=== PATIENT | male | born 1940 | race Caucasian/White ===

== ENCOUNTER 2020-09-06 13:41 | Outpatient (CLI) | payer MEDICARE, SELFPAY ==
[2020-09-06 14:03] LABS: Basophils Percent Auto 0.4 % (0.2-1.2); Eosinophils Absolute Auto 0.1 K/mm3 (0-0.3); Eosinophils Percent Auto 1.5 % (0-4.4); Hematocrit 37.4 % (42.0-52.0); Hemoglobin 10.7 g/dL (14.0-18.0); Immature Granulocyte Absolute 0.04 K/mm3 (0.00-0.031); Immature Granulocyte Percent A 0.4 % (0-0.5); Lymphocytes Absolute Auto 1.58 K/mm3 (0.9-3.2); Lymphocytes Percent Auto 17.1 % (18.3-44.2); Mean Corpuscular HGB Conc 28.6 g/dl (32-36); Mean Corpuscular Hemoglobin 24.4 pg (26-34); Mean Corpuscular Volume 85.4 fl (80-100); Mean Platelet Volume 8.3 fl (7.4-10.4); Monocytes Absolute Auto 0.7 K/mm3 (0.1-0.6); Monocytes Percent Auto 7.8 % (2.6-8.5); Neutrophils Absolute Auto 6.7 K/mm3 (1.3-6.7); Neutrophils Percent Auto 72.8 % (45.5-73.1); Platelet Count Result 382 k/mm3 (150-375); Red Blood Count 4.38 M/mm3 (4.6-6.20); Red Cell Distribution Width 16.3 % (11.5-14.5); White Blood Count 9.3 K/mm3 (4.5-10.0)
[2020-09-06 14:52] LABS: Alanine Aminotransferase 9 U/L (4-50); Albumin Level 3.4 g/dL (3.5-5.1); Alkaline Phosphatase 66 U/L (38-126); Anion Gap 3 mmol/L (8-16); Aspartate Amino Transferase 26 U/L (17-59); Bilirubin,Total 0.3 mg/dL (0.2-1.3); Blood Urea Nitrogen 8 mg/dL (9-20); Calcium 9.3 mg/dL (8.4-10.2); Carbon Dioxide 35 mmol/L (22-30); Chloride 100 mmol/L (98-107); Estimated Glomerular Filt Rate > 60; Glucose 98 mg/dL (75-110); Potassium 4.2 mmol/L (3.4-5.0); Sodium 138 mmol/L (137-145)
== END 2020-09-06 13:42 | disposition home or self-care (01) ==
PROVIDERS: Visit Provider Internal Medicine Hematology & Oncology
DX: C34.90 Malignant neoplasm of unspecified part of unspecified bronchus or lung (principal)
CPT/HCPCS: 36415; 80053; 85025

== ENCOUNTER 2020-09-10 07:35 | Outpatient (CLI) | payer MEDICARE, SELFPAY ==
--- NOTE | ~2020-09-10 | CT_ITS ---
EXAMINATION: CT brain w con EXAM DATE: 09/10/2020 08:22 INDICATION: Small cell lung cancer. TECHNIQUE: Spiral CT of the head was performed following intravenous injection of 100 mL intravenous Omnipaque 350 solution. Axial, coronal and sagittal images were reviewed. The dose-length product ( DLP) for this examination was 605.33 mGy-cm. The exposure was tailored according to patient size, an d iterative reconstruction (ASIR) was used as additional dose reduction technique. There is no prior study for comparison. FINDINGS: There is a 3 mm focus of enhancement in the right frontal subcortical white matter, axial 3 5. Thin rim of hypodensity suspected surrounding this. Probably metastatic lesion with vasogenic tessa a. This is the only focus of abnormal enhancement identified. There is mild microangiopathy and cereb ral atrophy. No acute intracranial hemorrhage, extra-axial collections or obstructive hydrocephalus. There is mild microangiopathy and cerebral atrophy. Left frontal craniotomy, and parasellar aneurysm clips. Mastoi d air cells, imaged portions of sinuses are unremarkable. IMPRESSION: Solitary 3 mm right frontal white matter enhancing focus most likely metastatic lesion. Reviewed, dictated and finalized at location B. [employer] PILOT IMPRESSION: Solitary 3 mm right frontal white matter enhancing focus most like ly metastatic lesion.
== END 2020-09-10 07:36 | disposition home or self-care (01) ==
PROVIDERS: PCP Family Medicine Sports Medicine; Visit Provider Internal Medicine Hematology & Oncology
DX: C34.12 Malignant neoplasm of upper lobe, left bronchus or lung (principal); R93.0 Abnormal findings on diagnostic imaging of skull and head, not elsewhere classified
CPT/HCPCS: 70460; Q9967

== ENCOUNTER 2020-09-13 07:32 | Outpatient (CLI) | payer MEDICARE, SELFPAY ==
--- NOTE | ~2020-09-13 | PE_ITS ---
EXAMINATION: PET skull to mid thigh DATE: 09/13/2020 09:41 INDICATION: Malignant neoplasm of the upper lobe of the left lung TECHNIQUE: Blood glucose level was 105 mg/dL. 10.3 mCi of 18-fluorodeoxyglucose (18-FDG) was administ ered i.v. Low dose computed tomography (CT) images were acquired from the base of the brain to the pr oximal thighs for attenuation correction and anatomic localization. Positron emission tomography (PET ) images were acquired in the same distribution beginning 67 minutes after injection. The dose-length product (DLP) was 946.31 mGy-cm. COMPARISON: 09/10/2020 FINDINGS: Head/neck: No abnormal FDG uptake is identified. The enhancing lesion in the right frontal subcortica l white matter described on the comparison CT does not definitely show FDG uptake however, this could be due to the small size of the lesion. Changes of left frontal craniotomy and parasellar aneurysm c lips are noted. Chest: There is a 12.1 x 9.6 cm left perihilar mass extending into the upper lobe and lower lobe whic h demonstrates abnormal FDG uptake with an SUV max of 44.7. The mass infiltrates into the mediastinum and exerts mass effect on the left atrium of the heart. There is a small left pleural effusion with an indwelling drainage catheter. The lingular and left lower lobe bronchi are obstructed by the mass. There is a moderate-sized pericardial effusion. A 2.4 x 1.7 cm lymph node adjacent to the cardiac ap ex demonstrates abnormal FDG uptake with an SUV max of 34. There is mild emphysema. The heart size is normal. Abdomen/pelvis/proximal thighs: Physiologic FDG activity is present in the bowel and urinary tract. T he liver, spleen, pancreas, gallbladder, and adrenal glands are normal. Cysts of the kidneys measure up to 8.0 cm on the left. There is calcified atherosclerosis of the aorta and many of the other arter ies. There are no pathologically enlarged abdominal lymph nodes. There is colonic diverticulosis. The re is a 3.1 x 2.1 cm fluid collection anterior to the proximal sigmoid colon with abnormal FDG uptake and foci of fluid and gas which extend anteromedially and superiorly, also with abnormal FDG activit y. There is a questionable fistula to a loop of small bowel in the midabdomen There is a small amount of ascites in the pelvis. There are no dilated loops of bowel. Musculoskeletal: No abnormal FDG uptake is identified. There is severe cervical spondylosis and moder ate thoracic and lumbar spondylosis. There is moderate osteoarthritis of the shoulders, severe left h ip osteoarthritis, and mild right hip osteoarthritis. Sclerotic lesions in the pelvis and proximal le ft femur without FDG uptake likely reflect bone islands. IMPRESSION: 1. Left perihilar mass extending into the upper and lower lobe, consistent with known malignancy. 2. Lymph node adjacent to the cardiac apex with abnormal FDG uptake, consistent with metastatic disea se. 3. Findings consistent with sigmoid diverticulitis with microperforation and possible fistula to a sm all bowel loop of the mid abdomen. Recommend correlation for left lower quadrant pain/tenderness, fev er, and other signs of acute process. Could consider trial of antibiotics with possible surgical eval uation. These findings and recommendations were discussed with Dr. Vishnu Montelongo MD at 1421 hours on 021. Reviewed, dictated and finalized at location A. [employer]ID DIRECTOR IMPRESSION: 1. Left perihilar mass extending into the upper and lower lobe, consistent with known malignancy. 2. Lymph node adjacent to the cardiac apex with abnormal FDG uptake, consistent with metastatic disease. 3. Findings consistent with sigmoid diverticulitis with microperforation and po ssible fistula to a small bowel loop of the mid abdomen. Recommend corre
[2020-09-13 08:04] LABS: Glucose Point of Care 105 (65-105)
== END 2020-09-13 07:33 | disposition home or self-care (01) ==
PROVIDERS: PCP Family Medicine Sports Medicine; Visit Provider Internal Medicine Hematology & Oncology
DX: C34.12 Malignant neoplasm of upper lobe, left bronchus or lung (principal)
CPT/HCPCS: 78815; 82948; A9552

== ENCOUNTER → 2020-09-21 00:29 | Outpatient (CLI) | payer MEDICARE, SELFPAY ==
[2020-09-21 19:13] LABS: SARS-CoV-2 RNA PCR Negative
== END ==
PROVIDERS: PCP Family Medicine Sports Medicine; Visit Provider Surgery
DX: Z01.812 Encounter for preprocedural laboratory examination (principal); Z20.822 Contact with and (suspected) exposure to COVID-19
CPT/HCPCS: C9803; U0003; U0005

== ENCOUNTER 2020-10-17 08:33 | Outpatient (RCR) | payer MEDICARE, SELFPAY ==
[2020-10-17 09:00] VITALS: BP 121/83; PULSE 122; RESP 16; TEMP 36.8; O2SAT 96; BMI 28.5
== END 2021-01-15 23:59 | disposition home or self-care (01) ==
LOC: ANHVASCINF 08:33
PROVIDERS: PCP Family Medicine Sports Medicine; Visit Provider Internal Medicine Hematology & Oncology
DX: Z45.2 Encounter for adjustment and management of vascular access device (principal); C34.90 Malignant neoplasm of unspecified part of unspecified bronchus or lung
CPT/HCPCS: 36569; C1751

== ENCOUNTER 2020-11-11 09:04 | Outpatient (CLI) | payer MEDICARE, SELFPAY | END 2020-11-11 09:05 | disposition home or self-care (01) | LOC: ANHLAB 09:07 | PROVIDERS: PCP Family Medicine Sports Medicine | DX: Z51.81 Encounter for therapeutic drug level monitoring (principal); Z79.899 Other long term (current) drug therapy; B45.9 Cryptococcosis, unspecified | CPT/HCPCS: 36415; 82248 ==

== ENCOUNTER → 2020-12-17 01:14 | Outpatient (CLI) | payer MEDICARE, SELFPAY ==
[2020-12-17 17:24] LABS: SARS-CoV-2 RNA PCR Negative
== END ==
PROVIDERS: PCP Family Medicine Sports Medicine; Visit Provider Surgery
DX: Z01.812 Encounter for preprocedural laboratory examination (principal); Z20.822 Contact with and (suspected) exposure to COVID-19
CPT/HCPCS: C9803; U0003; U0005

== ENCOUNTER 2020-12-20 00:50 | Day surgery (SDC) | payer MEDICARE, SELFPAY ==
[2020-12-13 09:25] VITALS: BMI 26.7
--- NOTE | ~2020-12-20 | XR_ITS ---
XR chest port-a-cath/central, XR fl guide central line place 12/20/2020 13:04 (accession [id number]), 12/20/2020 12:40 (accession [id number]) Indication: Right portacatheter placement Procedure: Single fluoroscopic view of the right upper chest. 119 seconds of fluoroscopy. Follow-up A P portable chest. Comparison: 02/17/2006 Findings: Portacatheter tip in the SVC. Right lung clear. Complete opacification of the left hemithor ax, likely from previous left pneumonectomy. No acute osseous abnormality. PICC line tip likely in th e SVC, not well visualized. Impression: 1: Portacatheter tip in the SVC. 2: Opacification left hemithorax likely from previous pneumonectomy. Reviewed, dictated and finalized at location A. Impression: 1: Portacatheter tip in the SVC. 2: Opacification left hemithorax likely from previous pneumonectomy. Impression: 1: Portacatheter tip in the SVC. 2: Opacification left hemithorax likely from previous pneumonectomy.
[2020-12-20 10:42] VITALS: BP 148/86; PULSE 68; RESP 14; TEMP 36.4; O2SAT 98
[2020-12-20] MEDS: LACTATED RINGERS 1,000 ML 30 ML IV CONT (11:04)
[2020-12-20] MEDS: KETOROLAC 15 MG/ML VIAL (*BKC) IV PUSH (11:04)
[2020-12-20 11:08] LABS: Prothrombin Time 13.6 Seconds (11.1-14.7)
[2020-12-20 11:09] LABS: Partial Thromboplastin Time 28.4 SECONDS (22.3-36.8)
--- NOTE | 2020-12-20 11:46 | WPDHPUPDATE1 ---
History and Physical Update Update Date/Time: 12/20/20 11:46 History and Physical has been reviewed, including an updated exam of the patient. There are NO changes in the patient's condition. Risks, benefits, and alternatives have been discussed and questions answered. Patient agrees to proceed with procedure.
--- NOTE | 2020-12-20 11:46 | PM.IMHP ---
H&P: HPI History of Present Illness Date/Time: 12/20/20 11:46 Chief Complaint: lung cancer Narrative: 80 yo man presents for port placement for lung cancer. He has a PICC line due to a fungal infection of the lung, but now treatment has completed and he was given the OK to get a port. Review of Systems Review of Systems: All systems reviewed & are unremarkable except as noted in HPI and below Constitutional: Constitutional: Denies chills, Denies fever(s), Denies headache(s) and Denies weight loss Eyes: Eyes: Denies change in vision ENT: Denies dizziness, Denies headache(s), Denies neck mass and Denies throat swelling Cardiovascular: Cardiovascular: Denies chest pain, Denies lightheadedness and Denies dyspnea Respiratory: Respiratory: Denies cough, Denies dyspnea and Denies wheezing Gastrointestinal: Gastrointestinal: Denies abdominal pain, Denies change in bowel habits, Denies nausea and Denies vomiting Genitourinary: Genitourinary: Denies hematuria and Denies dysuria Musculoskeletal: Musculoskeletal: Reports as per HPI Integumentary/Breasts: Skin/Breast: Reports as per HPI Neurologic: Denies dizziness and Denies headache(s) Allergic/Immunologic: Allergic/Immunologic: Denies throat swelling and Denies wheezing [facility] Past Medical History Medical History (Updated 11/25/20 @ 10:15 by Hannah Mcgraw MD) Diverticulitis HTN (hypertension) Hyperlipidemia Family History Family History (Updated 09/18/20 @ 11:44 by Hannah Mcgraw MD) Father Suicide Mother Suicide Social History Social History (Updated 09/18/20 @ 11:44 by Hannah Mcgraw MD) Smoking packs per day: 2 Smoking cigarettes per day: 40.0 Years smoked: 20 Smoking pack-years: 40.00 Smoking status: Former smoker Tobacco type: cigarettes Smoking end date: 07/05/03 Alcohol intake: never Alcohol use details: HEAVY DRINKER UNTIL 2004 Substance use: never Substance use type: does not use Living arrangements: alone Gender identity (if verbalized by the patient): Male Spiritual care concerns: No Meds Home Medications and Allergies Home Medications Medication Instructions Recorded Confirmed Type folic acid 1 mg PO DAILY 09/20/20 12/20/20 History docusate calcium [Stool Softener 240 mg PO DAILY PRN 10/15/20 12/20/20 History (docusate [place])] fluconazole 400 mg PO HS 10/15/20 12/20/20 History polyethylene glycol 3350 [Miralax] 17 g PO DAILY 10/15/20 12/20/20 History hydrocodone-acetaminophen 1 tablet PO Q4H PRN 11/12/20 12/20/20 History prochlorperazine maleate 10 mg PO BID PRN 12/13/20 12/20/20 History Allergies Allergy/AdvReac Type Severity Reaction Status Date / Time No Known Allergies Allergy Mild Verified 12/20/20 10:56 Vital Signs Vital Signs - 24 hr 12/20/20 10:42 Temperature 36.4 C Pulse Rate 68 Respiratory Rate 14 Blood Pressure 148/86 H Pulse Oximetry 98 Exam Const: General: no acute distress and alert Orientation/consciousness: patient oriented x3 HENMT: Head: normocephalic and atraumatic Ears: hearing grossly normal bilaterally General nose exam: Normal nares present Mouth: Yes Normal oral and palatal mucosa present Eyes: Periorbital: periorbital findings normal Sclera: sclerae normal EOM: EOMs intact bilaterally Neck: Neck: normal visual inspection, no lymphadenopathy and trachea midline Chest: Chest palpation & inspection: normal inspection of the chest Resp: Effort & Inspection: normal respiratory effort Auscultation: clear to auscultation bilaterally Cardio: Jugular venous distension: no JVD Rate: regular rate Rhythm: regular rhythm Heart sounds: S1 normal heart sound present and S2 normal heart sound present Peripheral pulses: Peripheral pulses 2+ throughout GI: Inspection: normal to inspection GI Palp: Yes Soft to palpation, No Tenderness to palpation present (GI), No Guarding due to palpation present (GI) and No Rebound tenderness present Percu
--- NOTE | 2020-12-20 11:47 | WPDANESEPPF ---
Anes - Initial Pre Proc Eval Procedure: Operation Date: 12/20/20 12:00 Proposed Procedures p Insertion Marty Cath - Haim Werner DO Date/Time: 12/20/20 11:47 Surgeon: Haim Werner DO Pre Op Diagnosis: malignant neoplasm of upper left lobe of lung Patient Data Age: 80 Gender: M Height: 6 ft 1 in Weight: 87.6 kg Last Vital Signs Temp 97.6 F 12/20/20 10:42 Pulse 68 12/20/20 10:42 Resp 14 12/20/20 10:42 BP 148/86 H 12/20/20 10:42 Pulse Ox 98 12/20/20 10:42 Allergies Allergy/AdvReac Type Severity Reaction Status Date / Time No Known Allergies Allergy Mild Verified 12/20/20 10:56 Home Medications Medication Instructions Recorded Confirmed Type folic acid 1 mg PO DAILY 09/20/20 12/20/20 History docusate calcium [Stool Softener 240 mg PO DAILY PRN 10/15/20 12/20/20 History (docusate [place])] fluconazole 400 mg PO HS 10/15/20 12/20/20 History polyethylene glycol 3350 [Miralax] 17 g PO DAILY 10/15/20 12/20/20 History hydrocodone-acetaminophen 1 tablet PO Q4H PRN 11/12/20 12/20/20 History prochlorperazine maleate 10 mg PO BID PRN 12/13/20 12/20/20 History Laboratory Tests 12/20/20 10:39 PT 13.6 Seconds Seconds (11.1-14.7) INR 1.0 APTT 28.4 SECONDS SECONDS (22.3-36.8) Patient hx anesthesia problems: none Family hx anesthesia problems: none PMFSH Past Medical History Medical History (Updated 11/25/20 @ 10:15 by Hannah Mcgraw MD) Diverticulitis HTN (hypertension) Hyperlipidemia Family History Family History (Updated 09/18/20 @ 11:44 by Hannah Mcgraw MD) Father Suicide Mother Suicide Social History Social History (Updated 09/18/20 @ 11:44 by Hannah Mcgraw MD) Smoking packs per day: 2 Smoking cigarettes per day: 40.0 Years smoked: 20 Smoking pack-years: 40.00 Smoking status: Former smoker Tobacco type: cigarettes Smoking end date: 07/05/03 Alcohol intake: never Alcohol use details: HEAVY DRINKER UNTIL 2004 Substance use: never Substance use type: does not use Living arrangements: alone Gender identity (if verbalized by the patient): Male Spiritual care concerns: No Anes - Eval Final PreProcedure Day of Procedure 12/20/20 11:47 Patient weight: overweight Heart: regular rate and rhythm Lungs: clear to auscultation Airway: Mallampati scale class II Neurological: alert and oriented Last oral intake: >/= 8 hours ASA classification: III Emergent: no Anesthetic plan: proceed Anesthesia type and monitoring: general GIVS and standard monitoring Informed Consent: The patient's anesthetic plan and its attendant risks and benefits were discussed with the patient/family/POA. Questions were solicited and answers provided to the satisfaction of the patient/family/POA.
[2020-12-20] MEDS: ceFAZolin 2 GM/D5W 50 ML 2 GM/50 ML BAG IVPB (11:55)
[2020-12-20] MEDS: HEPARIN SODIUM 5,000 UNITS/ML VIAL 5000 UNITS IRRIGATION (12:29)
[2020-12-20] MEDS: HEPARIN SODIUM, PORCINE 10,000 UNITS/10 ML VIAL 10000 UNITS IV PUSH (12:30)
[2020-12-20] MEDS: LIDO 1%/EPINEPHRINE 1:100,000 20 ML VIAL 50 ML INFILTRATE (12:33)
--- NOTE | 2020-12-20 12:40 | W.PM.PROC2 ---
Procedure Note - Detailed Date of Procedure 12/20/20 Pre-op Diagnosis malignant neoplasm of upper left lobe of lung Post-op Diagnosis same Procedure Performed Right Internal jugular Port-A-Cath placement using ultrasound and fluoroscopic guidance Surgeon Haim Werner, DO Anesthesia MAC and local (1% lidocaine with epinephrine) Indications This is a 80-year-old man who presents with small cell lung cancer. He has seen Oncology and is currently undergoing chemotherapy. He has a PICC line in place that was originally used for chemotherapy due to a chronic fungal lung infection. The lung infection has been adequately treated and he has been cleared for port placement. Decision was made to proceed with Port-A-Cath placement. Findings SonoSite ultrasound was used to identify the right internal jugular vein. This was visualized as a compressible vessels just lateral to the pulsatile carotid artery. The right IJ was accessed with an 18 gauge introducer needle under ultrasound guidance. Dark nonpulsatile blood was aspirated. Fluoroscopy was then used to guide advancement of the guidewire followed by the dilator sheath. He did have a somewhat tortuous superior vena cava, likely due to his mediastinal involvement of his cancer. The guidewire was visualized advancing all the way down to the right atrium. Fluoroscopy was then used to guide advancement of the port catheter tubing. Final fluoroscopic images demonstrated the port in proper position with no kinks along its path. Description of Procedure Procedure as well as risks, benefits, and alternatives were discussed with patient. Written consent was obtained and placed in chart prior to procedure. Patient was brought back to surgical suite. Was placed supine on operating table. Time-out was done confirm patient procedure. IV sedation was then administered by the Anesthesia Department. The chest and neck area was prepped and draped in sterile fashion using chlorhexidine prep. Patient was placed in Trendelenburg position. SonoSite ultrasound was used to identify the right internal jugular vein. It was visualized as a compressible vessel just lateral to the carotid artery. 1% lidocaine with epinephrine was infiltrated directly over the vessel under ultrasound guidance. An 18 gauge introducer needle was then advanced under ultrasound guidance directly into the right internal jugular vein. Dark nonpulsatile blood was aspirated. A 0.035 in guidewire was then advanced through the needle under fluoroscopic guidance. The guidewire was visualized advancing all the way down into the superior vena cava. 1% lidocaine with epinephrine was then infiltrated on the right anterior chest and along the tract up to the guidewire insertion site. A 3 cm incision was made with a 15 blade scalpel, and electrocautery was then used for dissection down through the subcutaneous tissue to the pectoral fascia. A pocket was created just inferior to the incision using blunt dissection. A small cyndi incision was then also made at the insertion site at the neck. The tunneler was then advanced from the chest incision up to the neck incision and the catheter tubing was brought up through this tract. The dilator and sheath were then advanced over the guidewire under fluoroscopic visualization. The dilator and guidewire were then removed leaving the sheath in place. The catheter tubing was then advanced through the sheath under fluoroscopic guidance. The sheath was unsnapped and carefully peeled away. The catheter tubing was released underneath the neck incision. Fluoroscopy was used to confirm proper placement of the catheter tubing and no kinks along its path. The catheter was then cut to proper length and secured to the port. The port was then accessed with a Ch needle and aspirated and flushed with heparinized saline. The port function with ease. The port was then hep-locked with Hep-Lock solution. The port was then placed withi
[2020-12-20 12:52] VITALS: BP 148/86; PULSE 107; RESP 16; O2SAT 95
[2020-12-20 13:22] VITALS: BP 111/66; PULSE 108; RESP 18; O2SAT 96
[2020-12-20 13:52] VITALS: BP 116/69; PULSE 100; RESP 18
[2020-12-20 14:15] VITALS: BP 116/65; PULSE 100; RESP 18
== END 2020-12-20 14:21 | disposition home or self-care (01) ==
PROVIDERS: PCP Family Medicine Sports Medicine; Visit Provider Surgery
PROC: (CPT 36561; principal; 2020-12-20 12:00)
DX: C34.12 Malignant neoplasm of upper lobe, left bronchus or lung (principal); I10 Essential (primary) hypertension; E78.5 Hyperlipidemia, unspecified; Z87.891 Personal history of nicotine dependence
CPT/HCPCS: 36561; 36415; 76937; 77001; 85610; 85730; C1788; C9803; J0690; J1644; J1885; J2704; J3010; J7030; J7120; U0003; U0005

== ENCOUNTER 2021-01-22 08:05 | Outpatient (CLI) | payer MEDICARE, SELFPAY ==
--- NOTE | ~2021-01-22 | CT_ITS ---
EXAMINATION: CT brain wo con DATE: 01/22/2021 09:08 INDICATION: Metastatic brain neoplasm; left lung malignancy TECHNIQUE: Computed tomography (CT) of the head was performed with 100 cc Omnipaque 350 intravenous c ontrast. The mA was adjusted according to patient size. Iterative reconstruction technique was employ ed. Exam dose: 659.78 mGy-cm total exam DLP. COMPARISON: 09/20/2020 CT brain FINDINGS: Left frontal craniotomy with bone flap secured by plates and screws. Surgical aneurysm clip s in the left suprasellar area. No fracture or bone destruction of the cranial vault. There is carotid siphon internal carotid artery calcification. There is nonspecific diminished attenu ation of cerebral white matter, likely due to chronic small vessel ischemic changes. Previously reported 3 mm enhancing mass in the right frontal area is not detected on the current nonc ontrast examination. Sensitivity is limited due to absence of the intravenous contrast material on th e current examination. Otherwise no intracranial mass lesion or hemorrhage or recent cerebrovascular accident is evident. No midline shift or mass effect effect. No subdural or epidural hematoma. No skull fracture or bone destruction. There is partial opacification of the left ethmoid air cells. The paranasal sinuses are otherwise well-developed and aerated as are the mastoid air cells. IMPRESSION: Previously reported 3 mm enhancing mass in the right frontal lobe is not evident on the current limited noncontrast examination. Reviewed, dictated and finalized at Location A. Reviewed, dictated and finalized at location A.
--- NOTE | ~2021-01-22 | CT_ITS ---
EXAMINATION: CT chest abdomen pelvis w con DATE: 01/22/2021 09:08 INDICATION: Small cell lung cancer TECHNIQUE: Computed tomography (CT) of the chest, abdomen, and pelvis was performed with 100 cc Omnip aque 350 intravenous contrast. Automated exposure control and iterative reconstruction technique were employed. Exam dose: 659.78 mGy-cm total exam DLP. COMPARISON: 09/13/2020 PET/CT scan FINDINGS: CHEST CT: Right Port-A-Cath catheter tip in right atrium. There is amputation at the distal left mainstem bronchus and left lung atelectasis due to an interval enlarged huge heterogeneous left lung mass measuring up to approximately 17 cm height, 12 cm with, 1 5 cm anteroposterior dimension. There is no aeration of the lung. There is mild leftward shift of the heart mediastinum. The mass engulfs the left hilum and invades the mediastinum. There is extension to the left. Cardiomegaly and mild pericardial effusion. The mass extends into the subcarinal area and along the esophagus. There are multiple metastatic deposits along the left side of the heart, measuring up to 3.2 cm. Ther e is prevascular lymphadenopathy measuring up to 12 x 20 mm. There are multiple left pleural metastases and there is mild pleural effusion on the left. ABDOMEN/PELVIS CT: Multiple peritoneal metastases are noted, measuring up to 2.1 cm. No hepatic space-occupying mass lesion is evident. The gallbladder is present. No bile duct dilatatio n. No pancreatic mass lesion, calcification or ductal dilatation. Splenic size is normal. Normal morphology of the adrenal glands. There are multiple bilateral renal cysts measuring up to 1.8 cm on the right, greater than 7 cm on th e left. 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 There is atherosclerotic calcification but no aneurysm of the abdominal aorta or iliac arteries. No i ntraperitoneal or retroperitoneal or pelvic mass lesion or adenopathy or ascites. Normal appendix. Diverticulosis of left and right colon; no CT evidence of diverticulitis. No bowel obstruction, bowel wall thickening, pneumatosis or intraperitoneal free air. Prostate enlargement. There is moderate thickening of the urinary bladder wall. Compression fracture deformity of T10. Moderately severe degenerative disease at L3-4 with associated minimal retrolisthesis. There is mild compression fracture deformity of L4 with concavity of the superior vertebral endplate. Severe degenerative disc disease at L5-S1. Bilateral glenohumeral osteoarthritis. Bilateral hip osteoarthritis, particularly severe on the left. Possible avascular necrosis of the lef t femoral head. There are scattered osteosclerotic foci of the axial skeleton, which may be due to bone islands or os teosclerotic metastatic disease from prostate. Consider radionuclide bone scan. IMPRESSION: Huge left lung malignancy and particularly the left mainstem bronchus with left lung inv asion and complete left lung atelectasis, mediastinal invasion, metastatic mediastinal adenopathy, pe ricardial and pleural metastasis, mild pleural effusion and pericardial effusion and peritoneal metas tases Prostate enlargement. Numerous sclerotic foci of the axial skeleton may be bone islands versus prosta te metastases. Consider radionuclide bone scan Multiple bilateral renal cysts Reviewed, dictated and finalized at Location A. Reviewed, dictated and finalized at location A. IMPRESSION: Huge left lung malignancy and particularly the left mainstem bronc hus with left lung invasion and complete left lung atelectasis, mediastinal inv asion, metastatic mediastinal adenopathy, pericardial and pleural metastasis, m ild pleural effusion and pericardial effusion and peritoneal metastases
== END 2021-01-22 08:06 | disposition home or self-care (01) ==
PROVIDERS: PCP Family Medicine Sports Medicine; Referring Provider Internal Medicine Hematology & Oncology; Visit Provider Radiology Radiation Oncology
DX: C34.92 Malignant neoplasm of unspecified part of left bronchus or lung (principal); C79.31 Secondary malignant neoplasm of brain; N28.1 Cyst of kidney, acquired; N40.0 Benign prostatic hyperplasia without lower urinary tract symptoms; M47.817 Spondylosis without myelopathy or radiculopathy, lumbosacral region; M16.0 Bilateral primary osteoarthritis of hip; M19.09 Primary osteoarthritis, other specified site; M48.54XA Collapsed vertebra, not elsewhere classified, thoracic region, initial encounter for fracture; M48.56XA Collapsed vertebra, not elsewhere classified, lumbar region, initial encounter for fracture
CPT/HCPCS: 70450; 71260; 74177; Q9967

== ENCOUNTER 2021-01-24 16:18 | Observation (INO) | payer MEDICARE, SELFPAY ==
[2021-01-24] VITALS (7 sets, daily range): BP systolic 91–116; BP diastolic 60–74; PULSE 103–118; RESP 18–28; TEMP 35.8; O2SAT 97–100
--- NOTE | ~2021-01-24 | XR_ITS ---
EXAMINATION: XR chest 2V EXAM DATE: 01/24/2021 16:40 INDICATION: Shortness of breath, lung cancer. Left-sided upper chest pain. TECHNIQUE: Frontal and lateral projections of the chest obtained and reviewed. Comparison is made to prior examination from 12/20/2020. FINDINGS: There is a right-sided portacatheter with intact line. Completely opacified left hemithora x again noted. Right lung is clear. No pneumothorax. Can't evaluate cardiac silhouette. There is aort ic arteriosclerosis. There are bony degenerative changes. IMPRESSION: Completely opacified left hemithorax unchanged. Correlate with CT chest from 2 days [facility] er. Reviewed, dictated and finalized at location A. IMPRESSION: Completely opacified left hemithorax unchanged. Correlate with CT c hest from 2 days earlier.
--- NOTE | 2021-01-24 16:21 | ECG_ITS ---
Measurements Intervals [place] Rate: 101 P: 67 FL: 146 QRS: 71 QRSD: 87 T: 60 QT: 332 QTc: 432 Interpretive Statements SINUS TACHYCARDIA BORDERLINE ECG Electronically Signed On 01-25-2021 6:59:56 CDT by Erik Callahan D.O.
[2021-01-24 20:23] LABS: Basophils Percent Auto 0.2 % (0.2-1.2); Eosinophils Percent Auto 0.2 % (0-4.4); Hemoglobin 8.7 g/dL (14.0-18.0); Immature Granulocyte Absolute 0.16 K/mm3 (0.00-0.031); Immature Granulocyte Percent A 1.2 % (0-0.5); Lymphocytes Absolute Auto 1.29 K/mm3 (0.9-3.2); Mean Corpuscular HGB Conc 31.1 g/dl (32-36); Mean Corpuscular Hemoglobin 30.7 pg (26-34); Mean Corpuscular Volume 98.9 fl (80-100); Mean Platelet Volume 8.4 fl (7.4-10.4); Monocytes Absolute Auto 1.2 K/mm3 (0.1-0.6); Monocytes Percent Auto 9.1 % (2.6-8.5); Neutrophils Absolute Auto 10.2 K/mm3 (1.3-6.7); Neutrophils Percent Auto 79.3 % (45.5-73.1); Platelet Count Result 345 k/mm3 (150-375); Red Blood Count 2.83 M/mm3 (4.6-6.20); Red Cell Distribution Width 20.2 % (11.5-14.5); White Blood Count 12.9 K/mm3 (4.5-10.0)
--- NOTE | 2021-01-24 20:29 | ED.SOB ---
HPI - SOB/Dyspnea General Chief Complaint: Shortness of Breath/Dyspnea Stated Complaint: SOB Time Seen by Provider: 01/24/21 19:47 Source: patient and RN notes reviewed Mode of arrival: ambulatory Limitations: no limitations History of Present Illness HPI Narrative: This is a 80 year old male with history of metastatic small cell lung cancer who presents for evaluation shortness of breath. Patient reports he has been having shortness of breath with exertion for 3 months, and it seems to be progressing. He is unable to walk more than 5 feet without having stop due to weakness and shortness of breath. He is undergoing radiation therapy for brain metastasis. He states he had CT scan of his body 2 days ago , and it shows that brain mets have resolved but he has severe disease in chest. He states he lives alone and he thinks he needs oxygen. He also reports generalized weakness for 1 month. HE is poor appetite and he has been losing weight. He is DNR. Related Data Home Medications Medication Instructions Recorded Confirmed folic acid 1 mg PO DAILY 09/20/20 01/25/21 docusate calcium [Stool Softener 240 mg PO DAILY PRN 10/15/20 01/25/21 (docusate [place])] polyethylene glycol 3350 [Miralax] 17 g PO DAILY 10/15/20 01/25/21 prochlorperazine maleate 10 mg PO BID PRN 12/13/20 01/25/21 Allergies Allergy/AdvReac Type Severity Reaction Status Date / Time No Known Allergies Allergy Mild Verified 01/24/21 12:37 Review of Systems Review of Systems: All systems reviewed & are unremarkable except as noted in HPI and below Constitutional: Constitutional: Denies chills, Denies fever(s) and Reports weakness Cardiovascular: Cardiovascular: Reports chest pain, Denies rapid heart rate and Denies radiating jaw, neck or arm pain Respiratory: Respiratory: Denies cough, Reports dyspnea and Denies wheezing Gastrointestinal: Gastrointestinal: Denies abdominal pain, Denies diarrhea, Denies nausea and Denies vomiting Neurologic: Denies focal weakness, Denies numbness and Reports weakness PMFSH Past Medical History Medical History (Updated 01/25/21 @ 06:54 by Silvana Kenny MD) Diverticulitis HTN (hypertension) Hyperlipidemia Metastatic primary lung cancer Family History Family History (Updated 09/18/20 @ 11:44 by Hannah Mcgraw MD) Father Suicide Mother Suicide Social History Social History (Updated 09/18/20 @ 11:44 by Hannah Mcgraw MD) Smoking packs per day: 2 Smoking cigarettes per day: 40.0 Years smoked: 20 Smoking pack-years: 40.00 Smoking status: Former smoker Tobacco type: cigarettes Smoking end date: 07/05/03 Alcohol intake: former Alcohol use details: HEAVY DRINKER UNTIL 2004 Substance use: former Substance use type: does not use Gender identity (if verbalized by the patient): Male Spiritual care concerns: No Exam Const: General: no acute distress and alert Orientation/consciousness: patient oriented x3 Eyes: Pupils: Equal, round and reactive pupils present EOM: EOMs intact bilaterally Resp: Effort & Inspection: normal respiratory effort, not labored and not tachypneic Auscultation: breath sounds absent on th left and diminished lung sounds Cardio: Rate: regular rate Rhythm: regular rhythm Heart sounds: no murmurs GI: GI Palp: Yes Soft to palpation, No Tenderness to palpation present (GI) and No Guarding due to palpation present (GI) Auscultation: normal bowel sounds Skin: General skin exam: normal color Neuro: General: patient oriented x3 and moves all extremities Other: but bilateral legs with weakness decreased strength trying to lift off bed. Sensation in tact. Psych: Mental Status: mental status grossly normal Affect: normal affect Course Reevaluation(s) Reevaluation #1: I spoke with Dr. Montelongo who is familiar with patient. He is aware of patient CT results from 2 days ago. It is unclear if there is improvement in his cancer.
[2021-01-24 20:32] LABS: Anion Gap 7 mmol/L (8-16); Blood Urea Nitrogen 12 mg/dL (9-20); Calcium 9.3 mg/dL (8.4-10.2); Carbon Dioxide 28 mmol/L (22-30); Chloride 101 mmol/L (98-107); Glucose 98 mg/dL (65-110); Potassium 4.6 mmol/L (3.4-5.0); Sodium 136 mmol/L (137-145)
[2021-01-24 20:41] LABS: Alanine Aminotransferase 11 U/L (4-50); Albumin Level 3.5 g/dL (3.5-5.1); Alkaline Phosphatase 96 U/L (38-126); Aspartate Amino Transferase 50 U/L (17-59); Bilirubin,Total 0.4 mg/dL (0.2-1.3); Magnesium 2.1 mg/dL (1.6-2.3)
[2021-01-24 20:44] LABS: Alveolar/Arterial O2 Gradient 25.2 mmHg; Base Excess ABG 2.4 mEq/l (+/-2.0); Carboxyhemoglobin 0.3 % THb (0-2.0); Fractional Inspired Oxygen 21 %; HCO3 ABG 25.7 mEq/l (22.0-26.0); Methemoglobin ABG 0.4 %THb (0-1.5); Oxygen Content ABG 13.6 %vol (16.0-22.0); Oxyhemoglobin 95.1 % THb (90.0-100.0); PCO2 ABG 34.6 mmHg (35.0-45.0); PO2 ABG 83.1 mmHg (80.0-100.0); PO2 FiO2 Ratio Arterial Blood 3.96 %; Reduced Hemoglobin 4.2 %THb (0-5.0); Total Hemoglobin 10.1 g/dL (12.0-18.0); pH ABG 7.488 (7.350-7.450)
[2021-01-24 20:45] LABS: Device ROOM AIR; Modified Allen's Test Pass; Site Drawn LEFT RADIAL
[2021-01-24] MEDS: SODIUM CHLORIDE 0.9% IV 1,000 ML 999 ML IV CONT (21:30)
[2021-01-24 21:47] LABS: Lactic Acid Reflex 3.4 mmol/L (0.7-2.1)
[2021-01-24 21:50] LABS: INR 1.1; Prothrombin Time 14.5 Seconds (11.1-14.7)
[2021-01-24 21:52] LABS: Partial Thromboplastin Time 85.7 SECONDS (22.3-36.8)
--- NOTE | 2021-01-24 22:33 | PC.NURSE ---
PT STILL UNABLE TO PROVIDE URINE SAMPLE AT THIS TIME.
[2021-01-24] MEDS: SODIUM CHLORIDE 0.9% IV 1,000 ML 125 ML IV CONT (23:17)
[2021-01-25] VITALS (16 sets, daily range): BP systolic 117–132; BP diastolic 59–72; PULSE 96–128; RESP 16–20; TEMP 36.2–37.1; O2SAT 94–100; BMI 24.7
[2021-01-25 00:35] LABS: Reflex Lactic Acid Yes or No Add Lactic
--- NOTE | 2021-01-25 00:37 | PC.NURSE ---
to floor c [facility]. [id number].
--- NOTE | 2021-01-25 01:24 | ADMGEN ---
This patient, Chivo Mckeon, was admitted to [facility] Surg Room 322-01. Patient/family oriented to hospital policies and general routines including ID bracelet, bed and alarms, visiting hours, pain management, procedures, bathroom and other care routines, personal items, smoking policy, room service/diet, and visiting hours. Information on how to activate the Rapid Response Team has been discussed. Patient/Family are encouraged to report perceived risks to care and to ask questions if they do not understand what they are told or what they should do.
[2021-01-25 01:49] LABS: Lactic Acid 3.7 mmol/L (0.7-2.1)
[2021-01-25] MEDS: CENTRAL LINE FLUSH 10 ML IV PUSH ×3 (06:09→21:59)
[2021-01-25] MEDS: SODIUM CHLORIDE 0.9% IV 1,000 ML 125 ML IV CONT ×3 (06:14→22:03)
[2021-01-25 06:22] LABS: Basophils Percent Auto 0.3 % (0.2-1.2); Eosinophils Percent Auto 0.2 % (0-4.4); Hematocrit 23.7 % (42.0-52.0); Hemoglobin 7.3 g/dL (14.0-18.0); Immature Granulocyte Absolute 0.12 K/mm3 (0.00-0.031); Lymphocytes Absolute Auto 1.22 K/mm3 (0.9-3.2); Lymphocytes Percent Auto 10.6 % (18.3-44.2); Mean Corpuscular HGB Conc 30.8 g/dl (32-36); Mean Corpuscular Hemoglobin 30.8 pg (26-34); Mean Platelet Volume 8.4 fl (7.4-10.4); Monocytes Absolute Auto 1.2 K/mm3 (0.1-0.6); Monocytes Percent Auto 9.9 % (2.6-8.5); Platelet Count Result 267 k/mm3 (150-375); Red Blood Count 2.37 M/mm3 (4.6-6.20); Red Cell Distribution Width 20.4 % (11.5-14.5); White Blood Count 11.6 K/mm3 (4.5-10.0)
[2021-01-25 06:42] LABS: Alanine Aminotransferase 8 U/L (4-50); Albumin Level 3.1 g/dL (3.5-5.1); Alkaline Phosphatase 85 U/L (38-126); Anion Gap 6 mmol/L (8-16); Aspartate Amino Transferase 46 U/L (17-59); Bilirubin,Total 0.3 mg/dL (0.2-1.3); Blood Urea Nitrogen 10 mg/dL (9-20); Calcium 8.8 mg/dL (8.4-10.2); Carbon Dioxide 27 mmol/L (22-30); Chloride 103 mmol/L (98-107); Estimated CRCL calculation 85 ml/min; Estimated Glomerular Filt Rate > 60; Glucose 84 mg/dL (65-110); Potassium 3.9 mmol/L (3.4-5.0); Sodium 136 mmol/L (137-145)
[2021-01-25 06:43] LABS: Lactic Acid Reflex 2.7 mmol/L (0.7-2.1)
[2021-01-25 06:51] LABS: Add Urine Microscopic? NO; Appearance Urine Clear (Clear); Bilirubin Urine Negative (Negative); Blood Urine Negative (Negative); Color Urine Yellow (Yellow); Glucose Urine UA Negative (Negative); Ketones Urine Negative (Negative); Leukocyte Esterase Ur Negative LEU/UL (Negative); Nitrate Urine Negative (Negative); Protein Urine Negative (Negative); Specific Grav Ur 1.011 (1.001-1.035); Urobilinogen Urine Negative mg/dL (<2.0)
--- NOTE | 2021-01-25 08:16 | PM.IMHP ---
H&P: HPI History of Present Illness Date/Time: 01/25/21 08:16 Chief Complaint: SHORTNESS OF BREATH Narrative: THIS IS A 80-YEAR-OLD MALE WITH PAST MEDICAL HISTORY SIGNIFICANT FOR SMALL CELL LUNG CANCER END-STAGE PATIENT PRESENTED TO THE EMERGENCY ROOM DUE TO WORSENING SHORTNESS OF BREATH AND GENERALIZED WEAKNESS ONGOING FOR THE LAST 3 WEEKS OR SO PATIENT IS CURRENTLY UNDERGOING CHEMOTHERAPY AND HAS UPCOMING APPOINTMENT WITH RADIATION ONCOLOGY. HE DENIES ANY FEVERS RIGORS OR CHILLS, NO NAUSEA NO VOMITING NO ABDOMINAL PAIN NO COUGH NO SPUTUM PRODUCTION NO SYNCOPE OR NEAR SYNCOPE. HAS LEFT-SIDED RIB CAGE PAIN WORSE WITH DEEP INSPIRATION. PATIENT STATES THAT HE KNOWS THE BY JUNE HE WILL BE GONE BUT IS STILL WANTS TO UNDERGO WITH PALLIATIVE TREATMENT BECAUSE A LIST WILL HAVE A COUPLE OF EXTRA MONTHS TO LIVE. PRELIMINARY WORKUP WAS SIGNIFICANT FOR CHEST X-RAY WITH WHITE-OUT LEFT HEMITHORAX CT OF ABDOMEN AND PELVIS AND CHEST SHOWS EXTENSIVE METASTATIC DISEASE. Review of Systems Review of Systems: Narrative: WORSENING SHORTNESS OF BREATH Constitutional: Constitutional: Denies chills, Denies fatigue, Denies fever(s), Denies malaise and Denies night sweats Eyes: Eyes: Denies change in vision ENT: Denies dysphagia and Denies odynophagia Cardiovascular: Cardiovascular: Denies irregular heart rhythm, Denies radiating jaw, neck or arm pain, Denies palpitations, Reports dyspnea and Reports dyspnea on exertion Respiratory: Respiratory: Denies cough, Reports pain on inspiration and Reports dyspnea Gastrointestinal: Gastrointestinal: Denies nausea and Denies vomiting Genitourinary: Genitourinary: Reports no additional male genitourinary complaints Musculoskeletal: Musculoskeletal: Reports no additional musculoskeletal complaints Integumentary/Breasts: Skin/Breast: Reports system reviewed and no additional complaints, except as docu Neurologic: Reports system reviewed and no additional complaints, except as documented Psychiatric: Psychiatric: Reports no additional psychiatric complaints Endocrine: Endocrine: Reports no additional endocrine complaints Hematologic/Lymphatic: Hematologic/Lymphatic: Reports no additional hematologic/lymphatic complaints Allergic/Immunologic: Allergic/Immunologic: Reports no additional allergic/immunologic complaints [facility] Past Medical History Medical History (Updated 01/25/21 @ 06:54 by Silvana Kenny MD) Diverticulitis HTN (hypertension) Hyperlipidemia Metastatic primary lung cancer Family History Family History (Updated 09/18/20 @ 11:44 by Hannah Mcgraw MD) Father Suicide Mother Suicide Social History Social History (Updated 09/18/20 @ 11:44 by Hannah Mcgraw MD) Smoking packs per day: 2 Smoking cigarettes per day: 40.0 Years smoked: 20 Smoking pack-years: 40.00 Smoking status: Former smoker Tobacco type: cigarettes Smoking end date: 07/05/03 Alcohol intake: former Alcohol use details: HEAVY DRINKER UNTIL 2004 Substance use: former Substance use type: does not use Gender identity (if verbalized by the patient): Male Spiritual care concerns: No Meds Home Medications and Allergies Home Medications Medication Instructions Recorded Confirmed Type folic acid 1 mg PO DAILY 09/20/20 01/25/21 History docusate calcium [Stool Softener 240 mg PO DAILY PRN 10/15/20 01/25/21 History (docusate [place])] polyethylene glycol 3350 [Miralax] 17 g PO DAILY 10/15/20 01/25/21 History prochlorperazine maleate 10 mg PO BID PRN 12/13/20 01/25/21 History Allergies Allergy/AdvReac Type Severity Reaction Status Date / Time No Known Allergies Allergy Mild Verified 01/24/21 12:37 Vital Signs Vital Signs - 24 hr 01/24/21 16:23 01/24/21 19:19 01/24/21 20:16 Temperature 96.5 F L Pulse Rate 118 H 111 H 104 H Respiratory Rate 18 20 28 H Blood Pressure 108/60 104/68 109/71 Pulse Oximetry 97 98 100 01/24/21 20:31 01/24/21 20:45 01/24/21
[2021-01-25] MEDS: polyethylene glycoL 3350 17 GM POWD.PACK PO (08:41)
[2021-01-25] MEDS: FOLIC ACID 1 MG TABLET PO (08:41)
[2021-01-25] MEDS: ONDANSETRON INJ 4 MG/2 ML VIAL IV PUSH ×2 (08:41→21:59)
--- NOTE | 2021-01-25 12:05 | PCRCNOTE ---
Window of time for administration has passed. See next scheduled administration.
[2021-01-25] MEDS: ALBUTEROL SULFATE NEB 2.5 MG/0.5 ML INH INHALATION ×3 (13:54→20:00)
--- NOTE | 2021-01-25 16:17 | PCRCNOTE ---
HOME OXYGEN EVALUATION COMPLETE; PT. DOES NOT REQUIRE HOME OXYGEN. DR. ALBERTO MATAMOROS AND PT.'S NURSE BOTH NOTIFIED OF THE RESULTS.
[2021-01-26] VITALS (8 sets, daily range): BP systolic 118; BP diastolic 56; PULSE 103–113; RESP 18–20; TEMP 36.7; O2SAT 98
[2021-01-26] MEDS: ALBUTEROL SULFATE NEB 2.5 MG/0.5 ML INH INHALATION ×2 (04:41→08:22)
[2021-01-26] MEDS: CENTRAL LINE FLUSH 10 ML IV PUSH (05:35)
[2021-01-26] MEDS: SODIUM CHLORIDE 0.9% IV 1,000 ML 125 ML IV CONT (05:35)
[2021-01-26] MEDS: FOLIC ACID 1 MG TABLET PO (07:56)
[2021-01-26] MEDS: ONDANSETRON INJ 4 MG/2 ML VIAL IV PUSH (07:56)
[2021-01-26] MEDS: polyethylene glycoL 3350 17 GM POWD.PACK PO (07:56)
--- NOTE | 2021-01-26 09:11 | PCOTNOTE ---
Attempted OT Evaluation, despite education on benefits of working with therapy, patient declined at this time, reports has to much on his mind and does not want to work with therapy today. Will follow and attempt at later time, RN notified.
--- NOTE | 2021-01-26 09:43 | PCPTNOTE ---
Patient refused treatment at this time, stated was told he gets to go home in a half an hour. Educated to benefits of mobility and maintaining strength for better outcome which patient followed with today is not a good day to due this would like to be left alone. RN notified.
[2021-01-26] MEDS: HEPARIN SODIUM LOCK FLUSH 500 UNITS/5 ML VIAL IV PUSH (10:32)
--- NOTE | 2021-01-26 10:55 | PM.DS ---
DS: Admitting Diagnosis Admitting Diagnosis (1) Metastatic cancer: Code(s): C79.9 - Secondary malignant neoplasm of unspecified site Status: Acute Assessment and Plan: END-STAGE PALLIATIVE CARE ASSESS FOR HOME OXYGEN (2) Lung mass: Code(s): R91.8 - Other nonspecific abnormal finding of lung field Status: Acute Assessment and Plan: WILL HAVE RADIATION ONCOLOGY CONSULT UPCOMING (3) Weakness: Code(s): R53.1 - Weakness Status: Acute Assessment and Plan: LIKELY SECONDARY TO TERMINAL ILLNESS SUPPORTIVE CARE (4) ORTIZ (dyspnea on exertion): Code(s): R06.00 - Dyspnea, unspecified Status: Acute Assessment and Plan: HOME EVAL FOR O2 (5) Small cell lung cancer: Code(s): C34.90 - Malignant neoplasm of unspecified part of unspecified bronchus or lung Status: Acute Assessment and Plan: END STAGE DS: Discharge Diagnosis Discharge Diagnosis (1) Metastatic cancer: Code(s): C79.9 - Secondary malignant neoplasm of unspecified site Status: Acute Assessment and Plan: END-STAGE PALLIATIVE CARE DID NOT QUALIFY FOR HOME OXYGEN (2) Lung mass: Code(s): R91.8 - Other nonspecific abnormal finding of lung field Status: Acute Assessment and Plan: WILL HAVE RADIATION ONCOLOGY CONSULT UPCOMING (3) Weakness: Code(s): R53.1 - Weakness Status: Acute Assessment and Plan: LIKELY SECONDARY TO TERMINAL ILLNESS SUPPORTIVE CARE (4) ORTIZ (dyspnea on exertion): Code(s): R06.00 - Dyspnea, unspecified Status: Acute Assessment and Plan: HOME EVAL FOR O2 (5) Small cell lung cancer: Code(s): C34.90 - Malignant neoplasm of unspecified part of unspecified bronchus or lung Status: Acute Assessment and Plan: END STAGE DS: Summary Hospital Course Reason for hospitalization: SOB Hospital Course: Narrative: THIS IS A 80-YEAR-OLD MALE WITH PAST MEDICAL HISTORY SIGNIFICANT FOR SMALL CELL LUNG CANCER END-STAGE PATIENT PRESENTED TO THE EMERGENCY ROOM DUE TO WORSENING SHORTNESS OF BREATH AND GENERALIZED WEAKNESS ONGOING FOR THE LAST 3 WEEKS OR SO PATIENT IS CURRENTLY UNDERGOING CHEMOTHERAPY AND HAS UPCOMING APPOINTMENT WITH RADIATION ONCOLOGY. HE DENIES ANY FEVERS RIGORS OR CHILLS, NO NAUSEA NO VOMITING NO ABDOMINAL PAIN NO COUGH NO SPUTUM PRODUCTION NO SYNCOPE OR NEAR SYNCOPE. HAS LEFT-SIDED RIB CAGE PAIN WORSE WITH DEEP INSPIRATION. PATIENT STATES THAT HE KNOWS THE BY JUNE HE WILL BE GONE BUT IS STILL WANTS TO UNDERGO WITH PALLIATIVE TREATMENT BECAUSE A LIST WILL HAVE A COUPLE OF EXTRA MONTHS TO LIVE. PRELIMINARY WORKUP WAS SIGNIFICANT FOR CHEST X-RAY WITH WHITE-OUT LEFT HEMITHORAX CT OF ABDOMEN AND PELVIS AND CHEST SHOWS EXTENSIVE METASTATIC DISEASE. HOSPITAL STAY WAS UNEVENTFUL RECEIVED HYDRATION Patient was evaluated for home oxygen but did not qualify he did not require oxygen throughout his hospital. He will follow-up with radiation oncology on Wednesday morning. CONSULTS OBTAINED: NO CONSULTS PROCEDURES PERFORMED: NO PROCEDURES Status at Discharge Cognitive/behavioral status at discharge: AAOX3 Time Spent with Patient Time attestation: Total time spent providing and/or coordinating discharge services: Exam Narrative: Exam Narrative: LAYING IN BED Const: General: cooperative, comfortable, no acute distress, well developed, alert, awake and ill appearing chronically Nutritional Appearance: thin Orientation/consciousness: patient oriented x3 HENMT: Head: normal to inspection, normocephalic and atraumatic Ears: hearing grossly normal bilaterally General nose exam: Normal external nose present Face and sinus: normal facial exam Mouth: Yes Normal oral and palatal mucosa present Eyes: General: appearance normal, both eyes and all related structures Sclera: sclerae normal Pupils: Equal, round and reactive pupils present EOM: EOMs intact b
== END 2021-01-26 11:00 | disposition home or self-care (01) ==
LOC: ANHED 19:56 → ANH3MEDSUR 01-25 02:43
PROVIDERS: Emergency Medicine; Admitting Provider Internal Medicine; Emergency Provider General Practice; PCP Family Medicine Sports Medicine; Visit Provider Internal Medicine
DX: C34.90 Malignant neoplasm of unspecified part of unspecified bronchus or lung (principal); R53.1 Weakness; C79.9 Secondary malignant neoplasm of unspecified site; R07.81 Pleurodynia; I10 Essential (primary) hypertension; E78.5 Hyperlipidemia, unspecified; Z87.891 Personal history of nicotine dependence
CPT/HCPCS: 36415; 36600; 71046; 80048; 80053; 80076; 81003; 82375; 82805; 83050; 83605; 83735; 85025; 85610; 85730; 93005; 94618; 94640; 96361; 96374; 96375; 96376; 97162; 99212; 99285; A9270; G0378; G0463; J1642; J2405; J7030